=== PATIENT | male | born 1965 ===

== ENCOUNTER 2023-02-12 14:14 | Emergency (ER) | payer BC ==
--- OUTSIDE RECORDS SUMMARY | 2023-02-12 14:25 | XMS REPORT | Continuity of Care Document ---
:1965 Author Organization [facility] t Address [address] [place] [address] [place] [id number] Care Team Providers Name Role Phone JA URBINA Primary Care Physician Unavailable GUERA BASSETT Attending Clinician Unavailable Guera Villegas Attending Clinician Carri Alberto MD Attending Clinician Ja Urbina MD Attending Clinician Lab, Ang - Db Attending Clinician Unavailable JA URBINA Attending Clinician Unavailable Doctor Unassigned, [place] Attending Clinician Unavailable Ajit Michaels DO Attending Clinician Ayaka Rose Attending Clinician Payers Payer Name Policy Type Policy Number Effective Date Expiration Date S [facility] - [id number] 2012 00:00:00 OUT OF STATE Problems Condition Condition Condition Status Onset Resolution Last Treating Co mments Source Name Details Category Date Date Treatment Clinician Date Sorethroat Sorethroat Disease Active 2021-09 U nivers 0-25 ity of 00:00: [place] [address] Medical Branch Flu-like Flu-like Disease Active 2021-09 Unive rs symptoms symptoms 0-25 ity of 00:00: [place] [address] Medical Branch Chills Chills Disease Active 2021-09 Univers 0-25 ity of 00:00: [place] [address] Medical Branch Fever, Fever, Disease Active 2021-09 Univers unspecifie unspecifie 0-25 it y of d fever d fever 00:00: [place] cause cause 00 Medical Branch Influenza Influenza Disease Active 2021-09 Uni vers A A 0-25 ity of 00:00: [place] 00 Medical Branch Hyperlipid Hyperlipid Disease Active U nivers emia with emia with 8-26 [place]y of [place] density density 00 Medical lipoprotei lipoprotei Br anch n (LDL) n (LDL) cholestero cholestero l less l less than 100 than 100 mg/dL mg/dL Allergies, Adverse Reactions, Alerts Allergy Allergy Status Severity Reaction(s) Onset Inactive Treating Comm ents Source Name Type Date Date Clinician NO KNOWN Drug Active Univers ALLERGIE Class ity of S [facility] Social History Social Habit Start Date Stop Date Quantity Comments Source Exposure to 2022-07-01 2022-07-11 Not sure [facility] SARS-CoV-2 00:00:00 14:28:00 [facility] (event) [place] Alcohol intake 2021-09-21 2021-09-21 Current drinker Unive rsity of 00:00:00 00:00:[address] [facility] (finding) [place] Tobacco use and 2018-05-01 2018-05-01 Smokeless tobacco Un iversity of exposure 00:00:00 00:00:00 non-user [facility] History of 2016-05-01 Cigarette Smoker Universi ty of tobacco use 00:00:00 [facility] Sex Ass[birth year] At [birth year] Universit y of 00:00:00 00:00:00 [facility] Smoking Status Start Date Stop Date Source Ex-smoker 2018-05-01 00:00:00 2018-05-01 00:00:00 Universi ty of [facility] Medications Ordered Filled Start Stop Current Ordering Indication Dosage Frequency Signature Comments Components Source Medication Medication Date Date Medication? Clinician (SIG) Name Name NIACIN ORAL 2021-09- No Take by Un [place] 0-25 10-25 mouth. ity of 14:38: 00:00 [place] 36 :00 Medical Branch NIACIN ORAL 2021-09- No Take by Un chiara 0-25 10-25 mouth. ity of 14:38: 00:00 [place] 36 :00 Medical Branch NIACIN ORAL 2021-09- No Take by Un [place]ara 0-25 10-25 mouth. ity of 14:38: 00:00 [place] 36 :00 Medical Branch naproxen 2021-09- No Take by Unive rs sodium 0-25 10-25 mouth. ity of (ALEVE) 220 14:38: 00:00 [place] mg capsule 30 :00 Medical Branch naproxen 2021-09- No Take by Unive rs sodium 0-25 10-25 mouth. ity of (ALEVE) 220 14:38: 00:00 [place] mg capsule 30 :00 Medical Branch naproxen 2021-09- No Take by Unive rs sodium 0-25 10-25 mouth. ity of (ALEVE) 220 14:38: 00:00 [place] mg capsule 30 :00 Medical Branch docosahexan 2021-09- No Take by Un chiara oic 0-25 10-25 mouth. ity of acid/epa 14:38: 00:00 [place] (FISH OIL 21 :00 Medical ORAL) Branch docosahexan 2021-09- No Take by Un chiara oic 0-25 10-25 mouth. ity of acid/epa 14:38: 00:00 [place] (FISH OIL 21 :00 Medical ORAL) Branch docosahexan 2021-09- No Take by Un chiara oic 0-25 10-25 mouth. ity of acid/epa 14:38: 00:00 [place] (FISH OIL 21 :00 Medical ORAL) Branch ibuprofen 2021-09- No [id number] 600mg Take 1 Univers 600 mg 0-25 11-09 tablet by ity of tablet 00:00: 05:59 mouth [place] 00 :00 every 6 Medical (six) Branch hours as needed for Temp > 38.5 C for up to 14 days. ibuprofen 2021-09- No [id number] 600mg Take 1 Univers 600 mg 0-25 11-09 tablet by ity of tablet 00:00: 05:59 mouth [place] 00 :00 every 6 Medical (six) Branch hours as needed for Temp > 38.5 C for up to 14 days. ibuprofen 2021-09- No [id number] 600mg Take 1 Univers 600 mg 0-25 11-09 tablet by ity of tablet 00:00: 05:59 mouth [place] 00 :00 every 6 Medical (six) Branch hours as needed for Temp > 38.5 C for up to 14 days. bromphenira 2021-09- No [id number] 10mL Take 10 mL Univers mine-pseudo 0-25 11-05 by mouth 4 i ty of ephedrine-D 00:00: 04:59 (four) [place] as M (BROMFED 00 :00 times Medical DM) 2-30-10 daily as Bran ch mg/5 mL needed for syrup Congestion /Allergies for up to 10 days. bromphenira 2021-09- No [id number] 10mL Take 10 mL Univers mine-pseudo 0-25 11-05 by mouth 4 i ty of ephedrine-D 00:00: 04:59 (four) [place] as M (BROMFED 00 :00 times Medical DM) 2-30-10 daily as Bran ch mg/5 mL needed for syrup Congestion /Allergies for up to 10 days. bromphenira 2021-09- No [id number] 10mL Take 10 mL Univers mine-pseudo 0-25 11-05 by mouth 4 i ty of ephedrine-D 00:00: 04:59 (four) [place] as M (BROMFED 00 :00 times Medical DM) 2-30-10 daily as Bran ch mg/5 mL needed for syrup Congestion /Allergies for up to 10 days. oseltamivir 2021-09- No [id number] 75mg Take 1 Univers 75 mg 0-25 10-31 capsule by ity of capsule 00:00: 04:59 mouth in [place] 00 :00 the [facility] morning Branch and 1 capsule in the evening. Do all this for 5 days. oseltamivir 2021-09- No [id number] 75mg Take 1 Univers 75 mg 0-25 10-31 capsule by ity of capsule 00:00: 04:59 mouth in [place] 00 :00 the Medical morning Branch and 1 capsule in the evening. Do all this for 5 days. oseltamivir 2021-09- No [id number] 75mg Take 1 Univers 75 mg 0-25 10-31 capsule by ity of capsule 00:00: 04:59 mouth in [place] 00 :00 the Medical morning Branch and 1 capsule in the evening. Do all this for 5 days. azelastine 2019-0 Yes [id number] 1{spray Use 1 Univers 137 mcg 1-29 } [place] in ity of (0.1 %) 00:00: each [place] nasal spray 00 nostril 2 Med ical (two) Branch times daily. Use in each nostril as directed albuterol 2020-0 Yes [id number] 2{puff} Inhale 2 Univers 90 1-29 Puffs ity of mcg/actuati 00:00: every 6 [place] on inhaler 00 (six) Medical hours as Branch needed for Wheezing or Shortness of Breath. azelastine 2019- Yes [id number] 1{spray Use 1 Univers 137 mcg 1-29 } [place] in ity of (0.1 %) 00:00: each [place] nasal spray 00 nostril 2 Med ical (two) Branch times daily. Use in each nostril as directed albuterol 0 Yes [id number] 2{puff} Inhale 2 Univers 90 1-29 Puffs ity of mcg/actuati 00:00: every 6 [place] on inhaler 00 (six) Medical hours as Branch needed for Wheezing or Shortness of Breath. azelastine Yes [id number] 1{spray Use 1 Univers 137 mcg 1-29 } [place] in ity of (0.1 %) 00:00: each [place] nasal spray 00 nostril 2 Med ical (two) Branch times daily. Use in each nostril as directed albuterol 2019-0 Yes [id number] 2{puff} Inhale 2 Univers 90 1-29 Puffs ity of mcg/actuati 00:00: every 6 [place] on inhaler 00 (six) Medical hours as Branch needed for Wheezing or Shortness of Breath. azelastine 2019- Yes [id number] 1{spray Use 1 Univers 137 mcg 1-29 } [place] in ity of (0.1 %) 00:00: each [place] nasal spray 00 nostril 2 Med ical (two) Branch times daily. Use in each nostril as directed albuterol 2019-0 Yes [id number] 2{puff} Inhale 2 Univers 90 1-29 Puffs ity of mcg/actuati 00:00: every 6 [place] on inhaler 00 (six) Medical hours as Branch needed for Wheezing or Shortness of Breath. azelastine 2021- No [id number] 1{spray Use 1 Univers 137 mcg 1-29 10-25 } [place] in ity of (0.1 %) 00:00: 00:00 each [place] nasal spray 00 :00 nostril 2 Med ical (two) Branch times daily. Use in each nostril as directed albuterol 2021- No [id number] 2{puff} Inhale 2 Univers 90 1-29 10-25 Puffs ity of mcg/actuati 00:00: 00:00 every 6 [place] inhaler 00 :00 (six) Medical hours as Branch needed for Wheezing or Shortness of Breath. azelastine 2021- No [id number] 1{spray Use 1 Univers 137 mcg 1-29 10-25 } [place] in ity of (0.1 %) 00:00: 00:00 each [place] nasal spray 00 :00 nostril 2 Med ical (two) Branch times daily. Use in each nostril as directed albuterol 2021- No [id number] 2{puff} Inhale 2 Univers 90 1-29 10-25 Puffs ity of mcg/actuati 00:00: 00:00 every 6 [place] inhaler 00 :00 (six) Medical hours as Branch needed for Wheezing or Shortness of Breath. azelastine 2021- No [id number] 1{spray Use 1 Univers 137 mcg 1-29 10-25 } [place] in ity of (0.1 %) 00:00: 00:00 each [place] nasal spray 00 :00 nostril 2 Med ical (two) Branch times daily. Use in each nostril as directed albuterol 2021- No [id number] 2{puff} Inhale 2 Univers 90 1-29 10-25 Puffs ity of mcg/actuati 00:00: 00:00 every 6 [place] inhaler 00 :00 (six) Medical hours as Branch needed for Wheezing or Shortness of Breath. docosahexan 2018- Yes Take by Uni vers oic 1-04 mouth. ity of acid/epa 09:07: [place] (FISH OIL 33 Medical ORAL) Branch naproxen 2018-09 [facility] mouth. ity of (ALEVE) 220 09:07: [place] mg capsule 33 Medical Branch NIACIN ORAL 2018-09 Yes Take by Uni vers 1-04 mouth. ity of 09:07: [place] [address] Medical Branch docosahexan 2018- Yes Take by Uni vers oic 1-04 mouth. ity of acid/epa 09:07: [place] (FISH OIL 33 Medical ORAL) Branch naproxen 2018-09 Yes Take by Univer s sodium 1-04 mouth. ity of (ALEVE) 220 09:07: [place] mg capsule 33 Medical Branch NIACIN ORAL 2018-09 Yes Take by Uni vers 1-04 mouth. ity of 09:07: [place] [address] Medical Branch docosahexan 2018- Yes Take by Uni vers oic 1-04 mouth. ity of acid/epa 09:07: [place] (FISH OIL 33 Medical ORAL) Branch naproxen 2018-09 Yes Take by Univer s sodium 1-04 mouth. ity of (ALEVE) 220 09:07: [place] mg capsule Medical Branch NIACIN ORAL 2018-09 Yes Take by Uni vers 1-04 mouth. ity of 09:07: [address] Branch docosahexan 2018-09 Yes Take by Uni vers oic 1-04 mouth. ity of acid/epa 09:07: [place] (FISH OIL 33 Medical ORAL) Branch naproxen 2018-09 Yes Take by Univer s sodium 1-04 mouth. ity of (ALEVE) 220 09:07: [place] mg capsule Medical Branch NIACIN ORAL 2018-09 Yes Take by Uni vers 1-04 mouth. ity of 09:07: [address] testosteron 2018-0 2021- No 1{patch Apply 1 Univers e 2 mg/24 05-16 } Patch to ity o f hour patch 00:00: 00:00 skin [place] 00 :[address] [facility] Vital Signs Vital Name Observation Time Observation Value Comments Source Systolic blood 2022-07-11 19:37:00 124 mm[Hg] Univer sity of pressure [facility] Diastolic blood 2022-07-11 19:37:00 75 mm[Hg] Unive rsity of pressure [facility] Heart rate 2022-07-11 19:37:00 98 /[facility] Body temperature 2022-07-11 19:37:00 37.5 [facility] height 2022-07-11 19:37:00 185.4 cm Universi ty of [facility] Body weight 2022-07-11 19:37:00 114.306 kg Universi ty [facility] BMI 2022-07-11 19:37:00 33.25 kg/m2 Universi ty [facility] Diastolic blood 2021-09-21 14:20:00 86 mm[Hg] Unive rsity of pressure [facility] Systolic blood 2021-09-21 14:20:00 143 mm[Hg] Univer sity of [facility] Heart rate 2021-09-21 14:19:00 75 /min Universi ty [facility] Body height 2021-09-21 14:19:00 185.4 cm Universi ty [facility] Body weight 2021-09-21 14:19:00 114.306 kg Universi ty [facility] BMI 2021-09-21 14:19:00 33.25 kg/m2 Universi ty [facility] Procedures Procedure Date / Time Performed Performing Clinician Sourc e POCT MOLECULAR FLU 2022-07-11 20:01:00 Guera Bassett [facility] POCT MOLECULAR STREP 2022-07-11 19:58:00 [facility] Start End Encounter Admission Attending Care Care Encounter Source Date/Time Date/Time Type Type Clinicians Facility Department ID 2022-07-11 2022-07-11 Outpatient R SERJIO [facility] [id number] Univers 14:30:00 16:20:45 GUERA cordoba [facility] 2022-07-11 2022-07-11 Office Serjio [facility] [id number] Univers 14:30:00 15:00:00 Visit Guera JOSHI [id number] it y of [place] [id number] [place] as KARIME?BLEA [phone] Mi latricia[address] MEDICAL OFFICE BUILDING 2021-12-13 2021-12-13 Telephone Remy [facility] [id number] Univers 00:00:00 00:00:00 Carri ECHOLS [id number] i ty of [id number] [place] PROFESS[place] [id number] Mi priyank SENIOR 188 [facility] 2021-10-17 2021-10-17 Telephone Carlitos [facility] [id number] Univers 00:00:00 00:00:00 [facility] [id number] it y of [place] [id number] [place] as KARIME?BLEA [phone] Mi priyank WHELAN [address] [facility] OFF[facility] 2021-09-21 2021-09-21 Group Cio Lab, Ang - Db [facility] 1.2.840.1 [id number] Univers 08:45:00 09:00:00 Visit Carlitos Ja [facility] [id number] ity of [place] [id number] [place] as KARIME?BLEA [id number] Mi priyank WHELAN 353 [facility] 2021-09-21 2021-09-21 Outpatient R CARLITOS [facility] [id number] Univers 08:00:00 08:57:38 [facility] 2021-09-21 2021-09-21 [facility] [id number] Univers 08:00:00 08:30:00 Visit [facility] [id number] it y of [place] [id number] [place] as KARIME?BLEA [id number] [address] OFFICE [facility] 2021-09-21 2021-09-21 [facility] [id number] Univers 08:00:00 08:00:00 JA ity [facility] 2021-09-21 2021-09-21 Orders Doctor SERVANDO [id number] Univers 00:00:00 00:00:00 Only Unassigned, KENNY [id number] ity of [place] [facility] [id number] [place] as [id number] [address] 2020-11-27 2020-11-27 Patient Brando [facility] [id number] Univers 00:00:00 00:00:00 Outreach Ajit PRIMARY [id number] i ty of [id number] [phone] Mi dical [address] [place] 2019-10-15 2019-10-15 Office Alli, [facility] [id number] Univers 11:12:00 12:10:55 Visit Ayaka [facility] [id number] i ty of [place] [id number] Cornelio as Professio [id number] Mi dicwv nal 0[address] [place] Office [address] [facility] 2019-10-15 2019-10-15 Letter [facility], [facility] [id number] Univers 00:00:00 00:00:00 (Out) Ayaka [facility] [id number] i ty of [place] [id number] [place] as Professio [id number] [facility] nal 044 [place] Office [facility] Results Test Description Test Time Test Comments Results Result Comments Source POCT MOLECULAR STREP 2022-07-11 20:06:13 Test Item Value Reference Range Interpretation Comme nts POCT Molecular Strep (test code = 41769-7) Negative Negative Lab Interpretation (test code = 78686-8) Normal [facility] MOLECULAR [id number] 20:06:13 Test Item Value Reference Range Interpretation Comments POCT Molecular Strep (test code = Negative Negative 33709-1) Lab Interpretation (test code = Normal 09870-6) [facility] MOLECULAR [id number] 20:06:13 Test Item Value Reference Range Interpretation Comments POCT Molecular Strep (test code = Negative Negative 73010-6) Lab Interpretation (test code = Normal 64824-4) [facility] MOLECULAR [id number] 20:05:32 Test Item Value Reference Range Interpretation Comments POCT Molecular FluA (test code = Positive Negative A 24008-2) Lab Interpretation (test code = Abnormal 08913-1) [facility] MOLECULAR [id number] 20:05:32 Test Item Value Reference Range Interpretation Comments POCT Molecular FluA (test code = Positive Negative A 43840-1) Lab Interpretation (test code = Abnormal 51804-0) [facility] [id number] 20:05:32 Test Item Value Reference Range Interpretation Comments POCT Molecular FluA (test code = Positive Negative A 08167-2) Lab Interpretation (test code = Abnormal 69403-6) [facility]
[2023-02-12] MEDS ORDERED: ONDANSETRON 4 MG/2 ML VIAL ONE (14:40)
[2023-02-12 14:49] LABS: Absolute Lymphocytes (CBC) 1.3 K/uL (0.7-4.9); Hematocrit 44.1 % (39.6-49.0); Lymphocytes % 10.7 % (15.3-44.8); MCV 88.3 fL (80-100); MPV 7.2 fL (7.6-11.3); RBC Red Blood Cell Count 4.99 M/uL (4.33-5.43)
[2023-02-12 15:01] LABS: Potassium 3.9 mEq/L (3.5-5.1)
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
[2023-02-12] MEDS ORDERED: FENTANYL CITR 100 MCG/2 ML ONE (16:07)
[2023-02-12 16:24] VITALS: TEMP 98.7
[2023-02-12 16:30] VITALS: BP 146/84; O2SAT 95
== END 2023-02-12 16:02 | disposition home or self-care (01) ==
LOC: ER 14:14
DX: G89.11 Acute pain due to trauma (principal); S20.221A Contusion of right back wall of thorax, initial encounter; S10.93XA Contusion of unspecified part of neck, initial encounter; V86.59XA Driver of other special all-terrain or other off-road motor vehicle injured in nontraffic accident, initial encounter
CPT/HCPCS: 85025; 80048; 36415; 86900; 86850; 86901; 70450; 72125; 71260; 74177; 96375; 96374; 99284; Q9967; J3010; J2405